=== PATIENT | female | born 1955 | race Caucasian/White ===

== ENCOUNTER 2017-01-09 10:34 | Emergency (ER) | payer OTHER ==
--- NOTE | 2017-01-09 11:34 | ERNOTE ---
Lower Extremity HPI - Narrative Date of Service: 01/09/17 - General Lower Extremities Pain: leg: left Time Seen by Provider: 01/09/17 11:00 Source: patient Exam Limitations: no limitations - Immun/Allergies/Home Medications Immunizations: IMMUNIZATION HX Immunizations Up to Date Yes History of Influenza Vaccine Yes Hx Pneumococcal Vaccination No Allergies/Adverse Reactions: Allergies Allergy/AdvReac Type Severity Reaction Status Date / Time codeine AdvReac Mild RASH Verified 01/09/17 10:51 Home Medications: HOME MEDICATIONS Calcium Carbonate/Vitamin D3 [Calcium 500 + Vit D 200 Tablet] 1 each PO BID 04/12 [Last Taken Unknown] Cholecalciferol (Vitamin D3) [Vitamin D3] 5,000 unit PO DAILY 12/28/15 [Last Taken Unknown] Levothyroxine Sodium [Synthroid] 100 mcg PO DAILY 12/28/15 [Last Taken Unknown] - History of Present Illness Narrative: Pt. comes in with c/o L leg pain and swelling for a week. Pt. also states that she also has a spontaneous bruise on her L inner thigh that is also hard warm and swollen. Pt. has a hx of vericosities without any change in activity lately. 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 Pt. denies any SOB, CP, NVD, fever, recent illness, or injury. Modifying Factors - (Improves): Reports: other - denies Modifying Factors - (Worsens): Reports: other - denies Associated Symptoms: Reports: none Other Injuries: Reports: none Prior Treament: Reports: other - denies Review of Systems - Review of Systems Constitutional: Present: no symptoms reported. Absent: recent illness, fever, chills, weakness, fatigue, malaise EYE: Present: no symptoms reported ENT: Present: no symptoms reported Respiratory: Present: no symptoms reported. Absent: shortness of breath, cough , wheezing Cardiology: Present: edema - LLE. Absent: chest pain, palpitations Gastrointestinal/Abdominal: Present: no symptoms reported. Absent: nausea, vomiting, diarrhea Genitourinary: Present: no symptoms reported Musculoskeletal: Present: muscle pain - L young and inner thigh. Absent: back pain, joint pain Skin: Present: lumps - L young and medial thigh. Absent: rash, lesions, change in color Neurological: Present: no symptoms reported. Absent: headache, dizziness/light- headedness, numbness, tingling All Other Systems: All systems neg except as marked - Patient's Past Medical History Patient History - Medical: Anxiety, Cataracts, Hypothyroidism, Other Patient History - Cardiac/Respiratory: Pneumonia Patient History - Cancer: No Hx of Cancer Patient History - Surgical Procedures: Cataracts, Colonoscopy, D & C, Other, Orthopedic Patient History - Other: None LMP (females 10-50): Menopausal - Family History Mother Family History - Medical: , No pertinent hx Family History - Cardiac/Respiratory: CHF, COPD Father Family History - Medical: , No pertinent hx Family History - Cardiac/Respiratory: No pertinent hx Sister Family History - Medical: No pertinent hx Family History - Cardiac/Respiratory: Hypertension cousin Family History - Medical: No pertinent hx Family History - Cardiac/Respiratory: No pertinent hx - Social History Living Situations: home Abuse History: No History of abuse Psych History: Hx of Anxiety, Current tx/ever been on anti-depressants or anti- anxiety meds Smoking Status: Former smoker Alcohol Use: occasionally Drug Use: none - Immunizations Immunizations Up to Date: Yes Hx Pneumococcal Vaccination: No History of Influenza Vaccine: Yes Physical Exam - Physical Exam General Appearance: Present: wd/wn, alert, no apparent distress Head Exam: Present: normal inspection, no evidence of injury Eye Exam: Normal inspection: bilateral, PERRL: bilateral, EOMI: bilateral Ears, Nose, Throat: Present: normal ENT inspection, normal pharynx Neck: Present: normal inspection, nontender. Absent: lymphadenopathy (R), lymphadenopathy (L) Respiratory: Present: no respiratory distress, normal breath sounds, no accessory muscle use, chest nontender, lungs clear. Absent: crackles, rales, rhonchi, wheezing Cardiovascular/Chest: Present: regular rate, rhythm, no murmur Peripheral Pulses: N=norm/S=strong/W=weak/B=bound/A=absent: Femoral (R): Strong , Femoral (L): Strong, Dorsalis-pedis (R): Weak, Dorsalis-pedis (L): Weak Gastrointestinal/Abdominal: Present: normal bowel sounds, nontender, nondistended, soft, no organomegaly Back Exam: Present: normal inspection Extremity Exam: Present: normal range of motion, extremity edema - trace LLE, other - vericosities throughout BLE, B young warmer than the rest of leg, hematoma L medial thigh 4cm in diameter healing, homans neg. Absent: calf tenderness Neurological Exam: Present: alert, oriented, normal mood/affect, no motor/ sensory deficits Skin Exam: Present: normal color, warm/dry. Absent: pallor, skin rash ED Progress - Vital Signs Patient's Vital Signs:: I have reviewed the patient's vital signs. Vital Signs: Vital Signs 01/09/17 01/09/17 10:42 10:56 Temperature 36.6 C Pulse Rate 93 82 Respiratory 16 Rate Blood Pressure 145/86 152/85 O2 Sat by Pulse 100 99 Oximetry - CT/Ultrasound CT/Ultrasound Narrative: US negative for any arterial or venous abnormality - Progress/Reassessment Chief Complaint: Lower Extremity Pain/ Injury Departure Clinical Impression: Varicosities of leg, Ruptured varicose vein - Departure Disposition: Home self-care Condition: Good Instructions: Varicose Veins, Bleeding Varicose Veins Additional Instructions: Please start wearing compression stockings and follow up with primary provider in 2-3 days. Referrals: Farnaz Chacon MD [Primary Care Provider] -
[2017-01-09 12:03] VITALS: BP 149/88
== END 2017-01-09 12:32 | disposition home or self-care (01) ==
LOC: ER 10:34
DX: I83.812 Varicose veins of left lower extremity with pain (principal); I83.892 Varicose veins of left lower extremity with other complications; I83.92 Asymptomatic varicose veins of left lower extremity; E03.9 Hypothyroidism, unspecified; Z87.891 Personal history of nicotine dependence